=== PATIENT | female | born 1960 | race Caucasian/White ===

== ENCOUNTER 2024-11-17 15:36 | Emergency (ER) | payer MEDICARE ==
[2024-11-17 15:40] VITALS: TEMP 95.9
--- NOTE | 2024-11-17 15:51 | ERPHSYRPT ---
- History of Present Illness Time Seen by Provider: 11/17/24 15:50 Historian: patient Exam Limitations: no limitations Patient Subjective Stated Complaint: pt here for chest pain for 24 hours to back and left shoulder, no sob or nausea Triage Nursing Assessment: pt alert, walked in.\ with cane resp easy, chest clear, no cough, moves all ext well, no edema noted Physician History: The patient presents with right-sided chest pain. She experiences stabbing pain in the left lower back near the shoulder blade, radiating around underneath the breast. This pain has persisted for the last couple of days. No burning sensation during urination, blood in urine, fever, nausea, vomiting, or diarrhea. She has not taken any specific medication for the chest pain but has taken Tylenol today. She denies any history of kidney stones, heart surgeries, or stents. She reports a history of heart flutters but no current chest pain. Timing/Duration: yesterday Activities at Onset: rest Quality: stabbing Location: back (left) Chest Pain Radiation: abdomen (LUQ) Severity of Pain-Max: severe Severity of Pain-Current: severe Modifying Factors: Improves With: nothing. Worsens With: breathing, palpation Associated Symptoms: No nausea, No vomiting, No palpitations, No abdominal pain, No shortness of breath, No cough, No hurts to breathe, No chills, No fever Prior Chest Pain/Cardiac Workup: no prior chest pain Nitro Today/Relief: 0.4 mg x 1, provided by ED Aspirin Treatment Today: 81 mg x 4, provided by ED Allergies/Adverse Reactions: No Known Drug Allergies Allergy (Verified 11/17/24 15:37) Home Medications: Losartan Potassium [Cozaar] 50 mg PO DAILY 10/29/14 [History] Famotidine 20 mg [Pepcid 20 MG] 1 ea DAILY 11/17/24 [History] Pravastatin Sodium 40 mg PO DAILY 11/17/24 [History] Hx Influenza Vaccination/Date Given: Yes (2023) Hx Pneumococcal Vaccination/Date Given: Yes Immunizations Up to Date: Yes Travel Risk - International Travel Have you traveled outside of the country in past 3 weeks: No - Emerging Infectious Disease Are you exhibiting symptoms associated with any current EIDs: No - Review of Systems All Other Systems: Reviewed and Negative - Past Medical History Pertinent Past Medical History: Yes Neurological History: No Pertinent History ENT History: Macular Degeneration Cardiac History: High Cholesterol, Hypertension Respiratory History: No Pertinent History Endocrine Medical History: No Pertinent History Musculoskeletal History: Arthritis, Degenerative Disk Disease GI Medical History: No Pertinent History History: No Pertinent History Psycho-Social History: No Pertinent History Female Reproductive Disorders: No Pertinent History - Past Surgical History Past Surgical History: Yes Neuro Surgical History: No Pertinent History Cardiac: No Pertinent History Respiratory: No Pertinent History Gastrointestinal: No Pertinent History Genitourinary: No Pertinent History Musculoskeletal: No Pertinent History Female Surgical History: Other Other Surgical History: Lipoma excision ,leap - Social History Smoking Status: Never smoker Exposure to second hand smoke: No Drug Use: none - Social Determinants of Health Will the patient participate in the screening: Yes Do you worry about a steady place to live?: Yes Do you have any problems with any of the following?: No known problems In the past 12 months,have you had to go without utilities?: No Transportation Issues: No Has anyone in your support network made you feel unsafe?: No Have you or anyone in your house had to go without enough: No - Nursing Vital Signs Nursing Vital Signs: Initial Vital Signs Temperature 95.9 F 11/17/24 15:40 Respiratory Rate 18 11/17/24 15:40 O2 Sat by Pulse Oximetry 97 11/17/24 15:40 Pain Scale Pain Intensity 0 - Physical Exam General Appearance: no apparent distress Eye Exam: eyes nml inspection Ears, Nose, Throat Exam: normal ENT inspection Neck Exam: normal inspection, supple, full range of motion Respiratory Exam: normal breath sounds, lungs clear, airway intact, No chest tenderness, No respiratory distress Cardiovascular Exam: regular rate/rhythm, capillary refill <2 sec Gastrointestinal/Abdomen Exam: soft, normal bowel sounds, No tenderness, No distention, No mass, No guarding, No rebound Back Exam: CVA tenderness (left), No vertebral tenderness Extremity Exam: normal inspection, normal range of motion Neurologic Exam: alert, oriented x 3, cooperative Skin Exam: normal color, warm, dry, No rash SpO2 Interpretation: normal SpO2: 96 O2 Delivery: Room Air - Course Nursing assessment & vital signs reviewed: Yes EKG Interpreted by Me: RATE (75), Sinus Rhythm, NORMAL AXIS, NORMAL INTERVALS, NORMAL QRS, NORMAL ST-T, Other (low voltage) - Radiology Exams Chest X-ray Interpretation: Interpreted by me (increased pulmonary vasculature) - CT Exams Abdomen/Pelvis CT Interpretation: Tele-radiologist Report, Other (1.5mm left calyceal nonobstructing stone, mild hepatosplenomegaly, 2 right hepatic cysts, small sliding hiatal hernia, small omental containing umbilical hernia) Ordered Tests: Active Orders 24 hr Category Date Time Status ABDOMEN AND PELVIS W/0 CONTRAS [CT] Stat Exams 11/17/24 16:33 Completed CHEST 1 VIEW (PORTABLE) Stat Exams 11/17/24 16:33 Taken CBC W DIFF Stat Lab 11/17/24 16:19 Completed CMP Stat Lab 11/17/24 16:19 Completed NT PRO BNPII Stat Lab 11/17/24 16:19 Completed TROPONIN Q4H Lab 11/17/24 16:19 Completed TROPONIN Q4H Lab 11/17/24 20:15 Ordered TROPONIN Q4H Lab 11/18/24 00:15 Ordered TSH, 3RD Generation Stat Lab 11/17/24 16:19 Completed UA W/RFX UR CULTURE Stat Lab 11/17/24 17:42 Completed Medication Summary Discontinued Medications Generic Name Dose Route Start Last Admin Trade Name Freq PRN Reason Stop Dose Admin Aspirin 324 mg 11/17/24 16:11 11/17/24 16:22 Aspirin 81 Mg Tab.Chew PO 11/17/24 16:12 324 mg STAT ONE Administration Aspirin Confirm 11/17/24 16:20 Aspirin 81 Mg Tab.Chew Administered 11/17/24 16:21 Dose 324 mg .ROUTE .STK-MED ONE Morphine Sulfate 2 mg 11/17/24 16:15 11/17/24 16:23 Morphine Sulfate 2 Mg/Ml Inj IV 11/17/24 16:16 2 mg STAT ONE Administration Morphine Sulfate Confirm 11/17/24 16:21 Morphine Sulfate 2 Mg/Ml Inj Administered 11/17/24 16:22 Dose 2 mg .ROUTE .STK-MED ONE Nitroglycerin 0.4 mg 11/17/24 16:11 11/17/24 16:24 Nitroglycerin 0.4 Mg (Ed) 0.4 Mg Tab.Subl SL 11/17/24 16:12 0.4 mg STAT ONE Administration Nitroglycerin Confirm 11/17/24 16:21 Nitroglycerin 0.4 Mg (Ed) 0.4 Mg Tab.Subl Administered 11/17/24 16:22 Dose 0.4 mg SL .STK-MED ONE Lab/Rad Data: Laboratory Result Diagrams 11/17/24 16:19 11/17/24 16:19 Laboratory Results 11/17/24 11/17/24 11/17/24 Range/Units 17:42 16:19 16:19 WBC (3.98-10.04) x10^3/uL RBC (3.93-5.22) x10^6/uL Hgb (11.2-15.7) g/dL Hct (34.1-44.9) % MCV (79.4-94.8) fL MCH (25.6-32.2) pg MCHC (32.2-35.5) g/dL RDW (11.7-14.4) % Plt Count (182-369) x10^3/uL MPV (9.4-12.3) fL Gran % (34.0-71.1) % Immature Gran % (Auto) (0.001-0.429) % Nucleat RBC Rel Count (0.00-0.2) % Eos # (Auto) (0.04-0.36) x10^3/uL Immature Gran # (Auto) (0.001-0.031) x10^3u/L Absolute Lymphs (auto) (1.18-3.74) x10^3/uL Absolute Monos (auto) (0.24-0.86) x10^3/uL Absolute Nucleated RBC (0.00-0.012) x10^3u/L Lymphocytes % (19.3-51.7) % Monocytes % (4.7-12.5) % Eosinophils % (0.7-5.8) % Basophils % (0.1-1.2) % Absolute Granulocytes (1.56-6.13) x10^3/uL Basophils # (0.01-0.08) x10^3/uL Sodium (135-145) mmol/L Potassium (3.5-5.1) mmol/L Chloride (98-107) mmol/L Carbon Dioxide (22-30) mmol/L Anion Gap (5-15) MEQ/L BUN (7-17) mg/dL Creatinine (0.52-1.04) mg/dL Estimated GFR ML/MIN Glucose (74-106) mg/dL Calcium (8.4-10.2) mg/dL Total Bilirubin (0.2-1.3) mg/dL AST (14-36) U/L ALT (0-35) U/L Alkaline Phosphatase (38-126) U/L Troponin I < 0.012 (0.000-0.033) ng/mL NT-Pro-B Natriuret Pep (<300) pg/mL Serum Total Protein (6.3-8.2) g/dL Albumin (3.5-5.0) g/dL Free T4 1.24 (0.78-2.19) ng/dL TSH 3rd Generation (0.470-4.680) mIU/L Urine Color Yellow (Yellow) Urine Appearance Cloudy A (Clear) Urine pH 8.0 (4.6-8.0) Ur Specific [place] 1.015 (1.005-1.030) Urine Protein Negative (Negative) Urine Glucose (UA) Negative (Negative) mg/dL Urine Ketones Negative (Negative) Urine Blood Negative (Negative) Urine Nitrite Negative (Negative) Urine Bilirubin Negative (Negative) Urine Urobilinogen 0.2 (0.2) mg/dL Ur Leukocyte Esterase Negative (Negative) U Hyaline Cast (Auto) NONE SEEN (0-2) /LPF Urine Microscopic RBC 0-2 (0-5) /HPF Urine Microscopic WBC 0-2 (0-5) /HPF Ur Epithelial Cells None Seen (None Seen) /HPF Urine Bacteria None Seen (None Seen) /HPF Urine Culture Reflexed NO (NO) 11/17/24 11/17/24 Range/Units 16:19 16:19 WBC 7.2 (3.98-10.04) x10^3/uL RBC 4.79 (3.93-5.22) x10^6/uL Hgb 13.6 (11.2-15.7) g/dL Hct 41.2 (34.1-44.9) % MCV 86.0 (79.4-94.8) fL MCH 28.4 (25.6-32.2) pg MCHC 33.0 (32.2-35.5) g/dL RDW 13.0 (11.7-14.4) % Plt Count 256 (182-369) x10^3/uL MPV 9.7 (9.4-12.3) fL Gran % 53.9 (34.0-71.1) % Immature Gran % (Auto) 0.3 (0.001-0.429) % Nucleat RBC Rel Count 0.0 (0.00-0.2) % Eos # (Auto) 0.35 (0.04-0.36) x10^3/uL Immature Gran # (Auto) 0.02 (0.001-0.031) x10^3u/L Absolute Lymphs (auto) 2.31 (1.18-3.74) x10^3/uL Absolute Monos (auto) 0.60 (0.24-0.86) x10^3/uL Absolute Nucleated RBC 0.00 (0.00-0.012) x10^3u/L Lymphocytes % 32.0 (19.3-51.7) % Monocytes % 8.3 (4.7-12.5) % Eosinophils % 4.8 (0.7-5.8) % Basophils % 0.7 (0.1-1.2) % Absolute Granulocytes 3.90 (1.56-6.13) x10^3/uL Basophils # 0.05 (0.01-0.08) x10^3/uL Sodium 139 (135-145) mmol/L Potassium 4.4 (3.5-5.1) mmol/L Chloride 105 (98-107) mmol/L Carbon Dioxide 28 (22-30) mmol/L Anion Gap 10.5 (5-15) MEQ/L BUN 13 (7-17) mg/dL Creatinine 0.68 (0.52-1.04) mg/dL Estimated GFR 96.0 ML/MIN Glucose 95 (74-106) mg/dL Calcium 9.6 (8.4-10.2) mg/dL Total Bilirubin 0.50 (0.2-1.3) mg/dL AST 28 (14-36) U/L ALT 20 (0-35) U/L Alkaline Phosphatase 75 (38-126) U/L Troponin I (0.000-0.033) ng/mL NT-Pro-B Natriuret Pep 22.7 (<300) pg/mL Serum Total Protein 7.3 (6.3-8.2) g/dL Albumin 4.6 (3.5-5.0) g/dL Free T4 (0.78-2.19) ng/dL TSH 3rd Generation 1.463 (0.470-4.680) mIU/L Urine Color (Yellow) Urine Appearance (Clear) Urine pH (4.6-8.0) Ur Specific [place] (1.005-1.030) Urine Protein (Negative) Urine Glucose (UA) (Negative) mg/dL Urine Ketones (Negative) Urine Blood (Negative) Urine Nitrite (Negative) Urine Bilirubin (Negative) Urine Urobilinogen (0.2) mg/dL Ur Leukocyte Esterase (Negative) U Hyaline Cast (Auto) (0-2) /LPF Urine Microscopic RBC (0-5) /HPF Urine Microscopic WBC (0-5) /HPF Ur Epithelial Cells (None Seen) /HPF Urine Bacteria (None Seen) /HPF Urine Culture Reflexed (NO) - Progress Progress: improved Air Movement: good Progress Note: 11/17/24 16:19 This patient presents with chest pain, with symptoms suggestive of noncardiac chest pain. History without high risk features (e.g., not substernal, no exertional component, not relieved with rest) Exam without evidence of volume overload. EKG without signs of active ischemia. HEART score: 3. Given the timing of pain to ER presentation, plan to send single troponin. Presentation not consistent with acute PE (Wells low risk // PERC ne gative), pneumothorax, thoracic arotic dissection, cardiac effusion or tamponade. Suspect possible left sided kidney stone vs UTI. Plan: labs, UA, troponin, EKG, CT abd/pelvis, CXR, ASA, pain control, serial reassessment 11/17/24 18:26 Labs unremarkable, Troponin neg, EKG neg for acute pathology, CXR no pna, pain improved, CT abd/pelvis neg for acute pathology. Advise close follow up for cardiac testing. Blood Culture(s) Obtained: No Antibiotics given: No Counseled pt/family regarding: lab results, diagnosis, need for follow-up, rad results Medical Desision Making - Diagnostic Testing Diagnostic test were ordered, analyzed, and reviewed by me: Yes Radiological Interpretation: Interpreted by me, Reviewed by me, Teleradiologist Report - Risk of complications The pt has a mod risk of morbidity or mortality based on: Need for prescription drug management - Departure Departure Disposition: Home Clinical Impression: Left flank pain, Umbilical hernia, Intercostal muscle strain, Renal lithiasis Condition: Good Critical Care Time: No Referrals: DOCTOR,NO FAMILY [Primary Care Provider] - Follow up/PCP as directed Instructions: Chest Pain (DC)
[2024-11-17 16:19] LABS: BASOPHIL % 0.7 % (0.1-1.2); Basophil (Absolute #) 0.05 x10^3/uL (0.01-0.08); Eosinophil % 4.8 % (0.7-5.8); Eosinophil (Absolute #) 0.35 x10^3/uL (0.04-0.36); Hematocrit 41.2 % (34.1-44.9); Hemoglobin 13.6 g/dL (11.2-15.7); IMMATURE GRAN # 0.02 x10^3u/L (0.001-0.031); IMMATURE GRAN % 0.3 % (0.001-0.429); Lymphocyte (Absolute #) 2.31 x10^3/uL (1.18-3.74); Mean Corpuscular Hemoglobin 28.4 pg (25.6-32.2); Mean Platelet Volume 9.7 fL (9.4-12.3); Monocytes % 8.3 % (4.7-12.5); Neutrophil % 53.9 % (34.0-71.1); Platelet Count 256 x10^3/uL (182-369); Red Blood Count 4.79 x10^6/uL (3.93-5.22); White Blood Count 7.2 x10^3/uL (3.98-10.04)
[2024-11-17] MEDS ORDERED: BABY ASPIRIN 81 MG CHEW ONE (16:20)
[2024-11-17] MEDS ORDERED: Nitrostat 0.4 MG (ED) SL ONE (16:21)
[2024-11-17] MEDS ORDERED: MORPHINE SULFATE 2 MG INJ ONE (16:21)
[2024-11-17] MEDS: BABY ASPIRIN 81 MG CHEW PO ONE (16:22)
[2024-11-17] MEDS: MORPHINE SULFATE 2 MG INJ IV ONE (16:23)
[2024-11-17] MEDS: Nitrostat 0.4 MG (ED) SL ONE (16:24)
[2024-11-17 16:57] LABS: ALBUMIN 4.6 g/dL (3.5-5.0); ANION GAP 10.5 MEQ/L (5-15); BILIRUBIN,TOTAL 0.5 mg/dL (0.2-1.3); Calcium 9.6 mg/dL (8.4-10.2); Creatinine 1 0.68 mg/dL (0.52-1.04); NT PRO BNPII 22.7 pg/mL (<300); Potassium 4.4 mmol/L (3.5-5.1); TSH, 3RD Generation 1.463 mIU/L (0.470-4.680); Total Protein 7.3 g/dL (6.3-8.2)
--- NOTE | 2024-11-17 17:28 | XRAY ---
CLINICAL HISTORY: left flank pain COMPARISON: None. TECHNIQUE: A CT scan of the abdomen and pelvis was performed without IV contrast. Coronal and sagittal reconstructive images were also obtained. One of the following dose-reduction techniques was utilized for this exam. Automated exposure control, adjustment of the mA and/or kV according to patient size, and use of iterative reconstruction. FINDINGS: Abdomen: The liver is mildly enlarged measuring 17 cm MCL. No diffuse parenchymal abnormality. Two right hepatic lobe hypodense focal lesions measuring 8 and 10 mm at segments VII and , likely hepatic cysts. The portal vein, intrahepatic biliary radicals, and the bile ducts are normal. The spleen is mildly enlarged measuring 13.7 cm along the maximum span, with no focal lesions. The pancreas and adrenal glands are unremarkable. The kidneys are unremarkable. They are normal in size and shape. No hydronephrosis. A tiny 1.5 mm left lower calyceal non-obstructing stone. The gallbladder is normal. No pericholecystic collection or radio-dense calculi in the gall bladder. The ascending colon, the transverse colon, the descending colon, visualized small bowel loops are unremarkable. The appendix is normal in size without tanvir appendiceal fat stranding and without an appendicolith. There is no evidence of significant enlargement of the mesenteric or retroperitoneal lymph nodes. A small sliding hiatus hernia. Divercation of recti with s small omental containing umbilical hernia. An epigastric small fat containing hernia. Pelvis: The urinary bladder is unremarkable. The rectosigmoid colon is unremarkable. The pelvic structures are unremarkable. The pelvic vasculature is unremarkable. No evidence of pelvic lymphadenopathy. Advanced Spondylotic changes of the lumbar spine with levo-scoliosis. No lytic bone lesions. A small left acetabulum sclerotic benign-looking focus, likely a bone island. Lower Ct chest cuts show left basal thick atelectatic bands. IMPRESSION: 1. No cute abdominopelvic abnormality. 2. A tiny 1.5 mm left lower calyceal non-obstructing stone. 3. Mild hepatosplenomegaly. 4. Two right hepatic lobe hypodense focal lesions measuring 8 and 10 mm at segments VII and , likely hepatic cysts. 5. A small sliding hiatus hernia. 6. Divercation of recti with s small omental containing umbilical hernia. 7. A right para-midline epigastric small fat containing hernia. Electronically Signed by: Helio Guzmán MD. (11/17/2024 17:23:21 EST)
[2024-11-17 18:00] LABS: Appearance Cloudy (Clear); Bacteria None Seen /HPF (None Seen); Bilirubin Negative (Negative); Blood Negative (Negative); Epithelial Cells None Seen /HPF (None Seen); Glucose, Urine Negative (Negative); Hyaline Casts NONE SEEN /LPF (0-2); Ketones Negative (Negative); Leukocyte Esterase Negative (Negative); Nitrite Negative (Negative); Protein,Urine Dip Negative (Negative); RBC 0-2 /HPF (0-5); Specific Gravity 1.015 (1.005-1.030); Urobilinogen 0.2 mg/dL (0.2); WBC 0-2 /HPF (0-5)
[2024-11-17 18:13] VITALS: BP 134/82; PULSE 53; RESP 16
[2024-11-17 18:29] VITALS: O2SAT 96
--- NOTE | 2024-11-17 20:10 | XRAY ---
Indication: Chest pain. Comparison: November 07, 2013 Portable apical lordotic chest again hyperinflated with new left infrahilar discoid atelectasis/scarring. No focal infiltrate, consolidation, or large effusion. Heart not enlarged again with small mediastinal/right hilar calcified nodes. Bony thorax intact with osteopenia, mild degenerative changes, and minimal dextroscoliosis. Impression: Nonacute hyperinflated chest with chronic features.
== END 2024-11-17 18:40 | disposition home or self-care (01) ==
LOC: ED 15:36
DX: R10.9 Unspecified abdominal pain (principal); K42.9 Umbilical hernia without obstruction or gangrene; S29.011A Strain of muscle and tendon of front wall of thorax, initial encounter; N20.0 Calculus of kidney; R07.9 Chest pain, unspecified; E78.5 Hyperlipidemia, unspecified; I10 Essential (primary) hypertension; Z79.899 Other long term (current) drug therapy; Z59.819 Housing instability, housed unspecified
CPT/HCPCS: 36415; 71045; 74176; 80053; 81001; 83880; 84439; 84443; 84484; 85025; 96374; 99284; 99285; J2270; A9270-GY